=== PATIENT | female | born 1945 | race Caucasian/White ===

== ENCOUNTER 2017-02-19 08:11 | Day surgery (SDC) | payer MEDICARE, MEDICAID ==
[~2017-02-19 08:11] MED LIST: ACETAMINOPHEN 325 MG TABLET PO PRN; ACETYLCHOLINE CHLORIDE 20 DROP KIT IO PRN; BUPIVACAINE HCL/PF 30 ML VIAL IJ PRN; CYCLOPENTOLATE HCL 20 DROP BTL LEFTEYE PRN; DEXTROSE 5%-0.5 NORMAL SALINE 1,000 ML IV PRN; EPINEPHrine 1 MG/ML AMPUL IO PRN; HYALURONATE SODIUM 0.4 ML DISP.SYRIN IO PRN; HYALURONATE SODIUM 0.85 ML DISP.SYRIN IO PRN; LIDOCAINE HCL/PF 200 MG/5 ML AMPUL TP PRN; LIDOCAINE HCL/PF 5 ML VIAL IO PRN; NORMAL SALINE 3 ML BOX IV PRN; TETRACAINE HCL 150 DROP BTL OP PRN
[2017-02-19] MEDS: TROPICAMIDE 150 DROP BTL LEFTEYE PRN ×3 (08:45→09:10)
[2017-02-19] MEDS: PHENYLEPHRINE HCL 50 DROP BTL LEFTEYE PRN ×3 (08:45→09:10)
[2017-02-19] MEDS ORDERED: RINGER'S SOLUTION,LACTATED 1,000 ML IV ONE (08:50)
[2017-02-19 11:31] VITALS: BP 108/45
== END 2017-02-19 08:12 | disposition home or self-care (01) ==
LOC: AMB 08:11
PROVIDERS: ATTEND Ophthalmology
PROC: 08RK3JZ Replacement of Left Lens with Synthetic Substitute, Percutaneous Approach (ICD-10-PCS; principal; 2017-02-19)
DX: E11.9 Type 2 diabetes mellitus without complications; I50.9 Heart failure, unspecified; I11.0 Hypertensive heart disease with heart failure; H26.8 Other specified cataract; Z68.26 Body mass index [BMI] 26.0-26.9, adult; Z87.891 Personal history of nicotine dependence; J44.9 Chronic obstructive pulmonary disease, unspecified

== ENCOUNTER 2017-03-05 08:25 | Day surgery (SDC) | payer MEDICARE, MEDICAID ==
[~2017-03-05 08:25] MED LIST changes: -CYCLOPENTOLATE HCL 20 DROP BTL LEFTEYE PRN; +CYCLOPENTOLATE HCL 20 DROP BTL RIGHTEYE PRN
[2017-03-05] MEDS: PHENYLEPHRINE HCL 50 DROP BTL RIGHTEYE PRN ×3 (08:58→09:18)
[2017-03-05] MEDS: TROPICAMIDE 150 DROP BTL RIGHTEYE PRN ×3 (08:58→09:18)
[2017-03-05] MEDS ORDERED: RINGER'S SOLUTION,LACTATED 1,000 ML IV ONE (09:17)
[2017-03-05 11:33] VITALS: BP 134/42
== END 2017-03-05 08:26 | disposition home or self-care (01) ==
LOC: AMB 08:25
PROVIDERS: ATTEND Ophthalmology
PROC: 08RJ3JZ Replacement of Right Lens with Synthetic Substitute, Percutaneous Approach (ICD-10-PCS; principal; 2017-03-05)
DX: H26.8 Other specified cataract (principal); E11.9 Type 2 diabetes mellitus without complications; I10 Essential (primary) hypertension; J44.9 Chronic obstructive pulmonary disease, unspecified; I25.2 Old myocardial infarction; Z87.891 Personal history of nicotine dependence; Z68.26 Body mass index [BMI] 26.0-26.9, adult